=== PATIENT | male | born 1945 | race Caucasian/White ===

== ENCOUNTER 2017-06-30 19:07 | Inpatient (IN) | payer MEDICARE, OTHER ==
[~2017-06-30] VITALS: Ht 175.3 cm; Wt 73.5 kg
[~2017-06-30 19:07] MED LIST: CARB-19 PO; CNC30T PO; DOCU-159 PO; FOLI1TAB42 PO; LEVO50TA74 PO; METAM PO; METO100T PO; OMEP20CA16 PO; SEVE800T7 PO; SIMV40TA3 PO; TAMS-14 PO
--- NOTE | 2017-06-30 19:21 | ERD ---
ER Documentation Chief Complaint Chief Complaint HPI 71-year-old male was brought in by ambulance after he was at his dialysis center nearly completed with his dialysis when he suddenly felt very confused and lightheaded for a time. He denied any chest pain felt fine before that. According the paramedics to the facility took his blood pressure said was extremely low with a systolic of 60. Patient is feeling much better now. He denies any current symptoms. ROS All systems reviewed and are negative except as per history of present illness. Medications Home Meds Reported Medications Clopidogrel Bisulfate* (Clopidogrel Bisulfate*) 75 Mg Tablet, 75 MG PO DAILY, # 30 TAB 06/30/17 Atorvastatin* (Atorvastatin*) 80 Mg Tablet, 80 MG PO QHS, #30 TAB 06/30/17 Psyllium* (Metamucil*) 1 Pkt Susp, 1 PKT PO DAILY for CONSTIPATION, PACKET 09/30/14 Levothyroxine Sodium* (Levothyroxine Sodium*) 50 Mcg Tablet, 50 MCG PO DAILY, TAB 09/30/14 Docusate Sodium* (Docusate Sodium*) 100 Mg Capsule, 200 MG PO DAILY, CAP 09/30/14 Sevelamer Carbonate* (Renvela*) 800 Mg Tablet, 800 MG PO TID, TAB 09/30/14 Omeprazole* (Omeprazole*) 20 Mg Capsule.dr, 20 MG PO DAILY, CAP 09/30/14 Metoprolol (Lopressor) 100 Mg Tablet, 200 MG PO BID 08/17/12 Tamsulosin Hcl* (Flomax*) 0.4 Mg Cap.sr.24h, 0.4 MG PO HS 08/17/12 Folic Acid/Vitamin B Comp W-C (Dialyvite Tablet) 1 Tab Tablet, 1 TAB PO DAILY 08/17/12 Discontinued Reported Medications Simvastatin (Simvastatin) 40 Mg Tablet, 20 MG PO HS, TAB 09/30/14 Cinacalcet* (Sensipar*) 30 Mg Tab, 30 MG PO DAILY, TAB 09/30/14 Carbidopa/Levodopa (Carbidopa-Levo 25-100 Tab) 1 Tab Tablet, 1 TAB PO TID 08/17/12 Allergies Allergies: Coded Allergies: Penicillins (Verified Allergy, Unknown, 05/06/14) PMhx/Soc History of Surgery: No Anesthesia Reaction: No Hx Neurological Disorder: No Hx Respiratory Disorders: No Hx Cardiac Disorders: No Hx Psychiatric Problems: No Hx Miscellaneous Medical Probl: No Hx Alcohol Use: No Hx Substance Use: No Hx Tobacco Use: No Physical Exam Vitals Vital Signs Date Time Temp Pulse Resp B/P Pulse Ox O2 Delivery O2 Flow Rate FiO2 06/30/17 21:00 97.5 80 15 122/72 100 Nasal Cannula 2.0 06/30/17 20:09 97.5 80 20 150/77 100 Nasal Cannula 06/30/17 19:15 97.7 80 17 132/71 91 Room Air 06/30/17 19:13 97.7 89 17 132/71 99 Physical Exam Const: [] No distress Head: Atraumatic Eyes: Normal Conjunctiva, EOMI, PERRLA ENT: Normal External Ears, Nose and Mouth. Neck: Full range of motion..~ No meningismus. Resp: Clear to auscultation bilaterally Cardio: Regular rate and rhythm, no murmurs Abd: Soft, non tender, non distended. Normal bowel sounds Skin: No petechiae or rashes Back: No midline or flank tenderness Ext: No cyanosis, or edema, cyanosis axis of left upper extremity with palpable thrill, distal pulses intact all 4 extreme Neur: Awake and alert oriented 3, cranial nerves II through XII intact, no cerebellar deficits, normal gait. Psych: Normal Mood and Affect Result Diagram: 06/30/17193906/30/171939 Results 24 hrs Laboratory Tests Test 06/30/17 19:40 06/30/17 19:53 06/30/17 22:37 White Blood Count 5.610^3/ul Red Blood Count 3.3110^6/ul Hemoglobin 11.0g/dl Hematocrit 32.9% Mean Corpuscular Volume 99.4fl Mean Corpuscular Hemoglobin 33.2pg Mean Corpuscular Hemoglobin Concent 33.4g/dl Red Cell Distribution Width 13.8% Platelet Count 21140^3/UL Mean Platelet Volume 9.5fl Neutrophils % 77.4% Lymphocytes % 5.0% Monocytes % 14.6% Eosinophils % 2.3% Basophils % 0.2% Nucleated Red Blood Cells % 0.0/100WBC Neutrophils # 4.310^3/ul Lymphocytes # 0.310^3/ul Monocytes # 0.810^3/ul Eosinophils # 0.110^3/ul Basophils # 0.010^3/ul Nucleated Red Blood Cells # 0.010^3/ul Sodium Level 142mmol/L Potassium Level 4.1mmol/L Chloride Level 94mmol/L Carbon Dioxide Level 38mmol/L Anion Gap 14 Blood Urea Nitrogen 23mg/dl Creatinine 4.13mg/dl Glucose Level 91mg/dl Calcium Level 9.6mg/dl Total Bilirubin 0.1mg/dl Direct Bilirubin 0.00mg/dl Indirect Bilirubin 0.1mg/dl Aspartate Amino Transf (AST/SGOT) 21IU/L Alanine Aminotransferase (ALT/SGPT) 15IU/L Alkaline Phosphatase 139IU/L Troponin I 0.969ng/ml Pending Total Protein 6.6g/dl Albumin 3.9g/dl Globulin 2.70g/dl Albumin/Globulin Ratio 1.44 Lipase 405U/L Lactic Acid Level 1.2mmol/L Creatine Kinase 52IU/L Creatine Kinase Index Pending Creatinine Kinase MB (Mass) Pending Current Medications Medications (Trade) Dose Ordered Sig/Rob Route PRN Reason Start Time Stop Time Status Last Admin Dose Admin Aspirin (Aspirin) 324 mg ONCE ONCE PO 06/30/17 21:30 06/30/17 21:31 DC 06/30/17 21:41 Ondansetron HCl (Zofran Inj) 4 mg ER BRIDGE PRN IV NAUSEA AND/OR VOMITING 07/01/17 00:00 07/01/17 23:59 Acetaminophen (Tylenol Tab) 650 mg ER BRIDGE PRN PO MILD PAIN/FEVER 07/01/17 00:00 07/01/17 23:59 Procedures/MDM 71-year-old male with elevated troponin consistent with end STEMI. EKG is nonischemic. Is a renal failure but his troponin is significantly elevated. Had 3 hours and 15 minutes of dialysis completed. Does not have chest pain. However did a very concerning episode which could be explained by cardiac ischemia in which she had near syncope and confusion. Was given aspirin and heparinized in the emergency room. is admitting to telemetry for further monitoring of troponins cardiac monitoring and evaluation EKG interpretation: Normal sinus rhythm rate of 80, right axis deviation, no ST- T wave changes concerning for acute ischemia, normal intervals. Date monitor interpretation: Normal sinus rhythm without arrhythmia Chest x-ray interpretation: I see no acute process, I see no widened mediastinum , no palmar edema, pneumothorax, no fractures. Departure Diagnosis: Primary Impression: Non-STEMI (non-ST elevated myocardial infarction) Condition: Serious GISELLA CROWDER DO Jun 30, 2017 19:20
[2017-06-30 20:22] LABS: ABNORMAL IP MESSAGE 1; BASOPHILS % 0.2 % (0.0-2.0); EOSINOPHILS # 0.1 10^3/ul (0.0-0.5); EOSINOPHILS % 2.3 % (0.0-7.0); HEMATOCRIT 32.9 % (42.0-52.0); LYMPHOCYTES # 0.3 10^3/ul (0.8-2.9); MEAN CORPUSCULAR HEMOGLOBIN 33.2 pg (29.0-33.0); MEAN CORPUSCULAR HGB CONC 33.4 g/dl (32.0-37.0); MEAN CORPUSCULAR VOLUME 99.4 fl (82.0-101.0); MEAN PLATELET VOLUME 9.5 fl (7.4-10.4); MONOCYTE # 0.8 10^3/ul (0.3-0.9); MONOCYTES % 14.6 % (0.0-11.0); NEUTROPHIL # 4.3 10^3/ul (1.6-7.5); NEUTROPHILS % 77.4 % (39.0-77.0); PLATELET COUNT 184 10^3/UL (140-415); POSITIVE DIFF @See below; RED BLOOD COUNT 3.31 10^6/ul (4.70-6.10); RED CELL DISTRIBUTION WIDTH 13.8 % (11.5-14.5); WHITE BLOOD COUNT 5.6 10^3/ul (4.8-10.8)
[2017-06-30 20:35] LABS: ALBUMIN 3.9 g/dl (3.3-4.9); ALBUMIN/GLOBULIN RATIO 1.44; BILIRUBIN,INDIRECT 0.1 mg/dl (0-1.1); BILIRUBIN,TOTAL 0.1 mg/dl (0.2-1.3); CALCIUM 9.6 mg/dl (8.4-10.2); CREATININE 4.13 mg/dl (0.61-1.24); POTASSIUM 4.1 mmol/L (3.5-5.1); TOTAL PROTEIN 6.6 g/dl (6.1-8.1)
[2017-06-30 20:51] LABS: TROPONIN-I 0.969 ng/ml (0.00-0.12)
[2017-06-30] MEDS ORDERED: ASPIRIN 81 MG TAB PO ONE (21:30)
--- NOTE | 2017-06-30 21:55 | RADRPT ---
PROCEDURE: Chest xray. CLINICAL INDICATION: Abdominal pain TECHNIQUE: A portable upright AP view of the chest was obtained. COMPARISON: 09/30/2014. FINDINGS: There is stable mild enlargement of the cardiac silhouette. The lungs are well expanded and show nor mal vascularity. There is mild left basilar subsegmental atelectasis. There is blunting of the left lateral costophrenic sulcus, similar to 09/30/2014. The right lung is unremarkable. No pneumothorax is identified. The skeletal structures and soft tissues are unremarkable. IMPRESSION: Stable mild cardiomegaly. Mild left basilar subsegmental atelectasis. Chronic blunting of the left lateral costophrenic sulcus, similar to 09/30/2014, likely related to s carring. RPTAT:PP .Marielos Ramirez MD, Date Time Electronically viewed and signed by .Marielos Ramirez MD, on 06/30/2017 21:54 .K/
[2017-06-30] MEDS ORDERED: ATOR80TA75 PO (22:05)
[2017-06-30] MEDS ORDERED: CLOP75TA4 PO (22:05)
--- NOTE | 2017-06-30 22:12 | RADRPT ---
PROCEDURE: CT Brain without contrast. CLINICAL INDICATION: confusion, near-syncope TECHNIQUE: A CT of the brain was performed on a GE [employer] 64-slice CT scanner utilizing axial imaging from the skull base through the vertex without IV contrast. Multiplanar reformatted images were made. Images were reviewed on a PACS workstation. The CTDIvol is 45.0 mGy and the DLP is 720 mGycm. One or more of the following dose reduction techniques were utilized: 1.) Automated exposure control 2.) Adjustment of the mA +/- kV according to patient's size 3.) Use of iterative reconstruction technique. COMPARISON: None FINDINGS: The lateral ventricles and third ventricle are enlarged; this may be due to cerebral atrophy with a central predominance though normal pressure hydrocephalus should also be considered given that ventr icular enlargement is out of proportion to cortical sulcal enlargement. Furthermore, the sylvian fis sures are prominent. No intracranial mass is seen. There is no intracranial hemorrhage, mass effect, or midline shift. No extra-axial fluid collection is seen. Intracranial arterial calcifications present. The visualized paranasal sinuses and osseous structures are grossly unremarkable. IMPRESSION: Enlargement of the ventricular system, particularly the lateral ventricles and third ventricle. This finding may be related to cerebral atrophy with a central predominance though normal pressure hydro cephalus should also be considered in this clinical context particularly given that ventricular enla rgement is out of proportion to cortical sulcal enlargement. Consider neurologic consultation for fu rther evaluation. No intracranial mass, midline shift, nor bleed. Physician Galo Date Time Electronically viewed and signed by Physician Galo on 06/30/2017 22:11 ML/
[2017-06-30] MEDS ORDERED: HEPARIN 1000 UNITS/ML 10 ML INJ IV STA (23:40)
[2017-06-30] MEDS ORDERED: HEPARIN 25000 UNITS/250 ML 250 ML IV STA (23:40)
[2017-06-30 23:46] LABS: CK-MB 1.26 ng/ml (0.0-2.4); TROPONIN-I 0.845 ng/ml (0.00-0.12)
[2017-07-01] MEDS ORDERED: morphine 2 MG INJ IV PRN (02:30)
[2017-07-01] MEDS ORDERED: ACETAMINOPHEN 325 MG TAB PO PRN ×2 (02:30)
[2017-07-01] MEDS ORDERED: NITROGLYCERIN (SL) 0.4 MG TAB SL PRN (02:30)
[2017-07-01] MEDS ORDERED: ALBUTEROL/IPRATROPIUM (NEB) 3 ML AMP HHN PRN (02:30)
[2017-07-01] MEDS ORDERED: ONDANSETRON 4 MG INJ IV PRN ×2 (02:30)
[2017-07-01] MEDS ORDERED: NACL 0.9% 3 ML SYG IV SCH (02:30)
[2017-07-01 04:25] LABS: INR 1.04; PROTIME 13.6 Sec (12.2-14.2); PT RATIO 1.1
[2017-07-01 05:32] LABS: PARTIAL THROMBOPLASTIN TIME > 180.0 Sec (25.0-35.0)
[2017-07-01 05:35] LABS: ABNORMAL IP MESSAGE 1; BASOPHILS % 0.5 % (0.0-2.0); EOSINOPHILS # 0.2 10^3/ul (0.0-0.5); EOSINOPHILS % 4.1 % (0.0-7.0); HEMATOCRIT 29.7 % (42.0-52.0); LYMPHOCYTES # 0.4 10^3/ul (0.8-2.9); LYMPHOCYTES % 9.7 % (15.0-51.0); MEAN CORPUSCULAR HEMOGLOBIN 33.7 pg (29.0-33.0); MEAN CORPUSCULAR HGB CONC 33.7 g/dl (32.0-37.0); MEAN PLATELET VOLUME 9.4 fl (7.4-10.4); MONOCYTE # 0.6 10^3/ul (0.3-0.9); MONOCYTES % 14.2 % (0.0-11.0); NEUTROPHIL # 3.1 10^3/ul (1.6-7.5); NEUTROPHILS % 70.8 % (39.0-77.0); PLATELET COUNT 152 10^3/UL (140-415); POSITIVE DIFF @See below; RED BLOOD COUNT 2.97 10^6/ul (4.70-6.10); RED CELL DISTRIBUTION WIDTH 13.8 % (11.5-14.5); WHITE BLOOD COUNT 4.4 10^3/ul (4.8-10.8)
[2017-07-01 05:55] VITALS: TEMP 97.8
[2017-07-01 06:05] LABS: INR 1.03; PROTIME 13.5 Sec (12.2-14.2); PT RATIO 1.1
[2017-07-01 06:24] LABS: CK-MB 1.15 ng/ml (0.0-2.4); TROPONIN-I 0.831 ng/ml (0.00-0.12)
[2017-07-01 06:29] LABS: PARTIAL THROMBOPLASTIN TIME 147.9 Sec (25.0-35.0)
[2017-07-01 07:28] LABS: ALBUMIN 3.2 g/dl (3.3-4.9); ALBUMIN/GLOBULIN RATIO 1.18; BILIRUBIN,INDIRECT 0.2 mg/dl (0-1.1); BILIRUBIN,TOTAL 0.2 mg/dl (0.2-1.3); CALCIUM 9.6 mg/dl (8.4-10.2); CHOL/HDL RATIO 2.4 RATIO; CREATININE 5.22 mg/dl (0.61-1.24); MAGNESIUM 2.1 mg/dl (1.7-2.5); POTASSIUM 4.4 mmol/L (3.5-5.1); TOTAL PROTEIN 5.9 g/dl (6.1-8.1)
--- NOTE | 2017-07-01 07:46 | HP ---
Date/Time of Note Date/Time of Note DATE: 07/01/17 TIME: 07:33 Assessment/Plan Assessment/Plan Assessment/Plan 1. Near syncope -Patient had lightheadedness, altered mentation, left upper and lower extremity numbness as well as possible near fainting episode. This happened during dialysis. -Plan is for the telemetry monitoring -Check orthostatics -Patient reported recent cardiac catheterization with "balloon" a week and half ago at [facility]. Will obtain records -will trend troponin. Initial troponin of 0.969 is trending and I believe is probably related to his recent CAD -2D echo and carotid Doppler ultrasound -Cardiology consult 2. History of CAD, with multiple stents -See #1 3. Left upper and lower extremity numbness -Patient does have a history of Parkinson's disease and reported intermittent left-sided tremors -Head CT showed -Will place a neurology consult -Will obtain MRI of the brain. 4. ESRD on HD -Nephrology consult 5. Mild pancreatitis -Patient not complaining of abdominal pain but the lipase is 405 6. History of A. fib -Continue outpatient meds 7. History of BPH Continue home medications HPI/ROS Admit Date/Time Admit Date/Time Hx of Present Illness This is a 71-year-old male with a history of CAD, status post PCI with stent 4 , ESRD on HD, atrial fibrillation, Parkinson's disease, BPH, dyslipidemia. Patient was sent from dialysis center for a lightheadedness, confusion and left sided numbness. Symptoms started 45 minutes before completion of his dialysis. There was no reported hypotension. No loss of consciousness. Patient denied chest pain, shortness of breath. He said a week and half ago, he was admitted for chest pain at [facility]. At that time, he said that he had cardiac catheterization with "balloon". He also complains of left-sided upper and lower extremity numbness. He has a history of Parkinson's disease and he said sometimes he has tremors on the left side of his upper and lower extremities. When he presented to the ER, vitals were stable. Labs shows a creatinine of 4.13, BUN 23, hemoglobin 11 and a bicarb 38. Initial troponin was 0.969 with a second troponin of 0.845. EKG no ST elevation or depression. Chest x-ray showed mild basilar subsegmental atelectasis and Chronic blunting of the left lateral costophrenic sulcus, similar to 09/30/2014, likely related to scarring. PMH/Family/Social Social History Smoking Status: Never smoker Exam/Review of Systems Vital Signs Vitals Vital Signs Date Time Temp Pulse Resp B/P Pulse Ox O2 Delivery O2 Flow Rate FiO2 07/01/17 07:26 76 20 130/79 98 Nasal Cannula 2.0 07/01/17 05:55 97.8 Labs Result Diagram: 07/01/17 0529 06/30/170 Medications Medications Current Medications Ondansetron HCl (Zofran Inj) 4 mg Q6H PRN IV NAUSEA AND/OR VOMITING; Start at 02:30 Nitroglycerin (Nitroglycerin (Sl Tab) 0.4 Mg) 1 tab Q5M PRN SL CHEST PAIN; Start 07/01/17 at 02:30 Acetaminophen (Tylenol Tab) 650 mg Q6H PRN PO PAIN LEVEL 1-3 OR FEVER; Start 07/01/17 at 02:30 Morphine Sulfate (morphine) 2 mg Q4H PRN IV PAIN LEVEL 7-10; Start 07/01/17 at 02:30 Atorvastatin Calcium (Lipitor) 80 mg QHS PO ; Start 07/01/17 at 21:00 Clopidogrel Bisulfate (plaVIX) 75 mg DAILY PO ; Start 07/01/17 at 09:00 Docusate Sodium (Colace) 200 mg DAILY PO ; Start 07/01/17 at 09:00 Metoprolol Tartrate (Lopressor) 200 mg BID PO ; Start 07/01/17 at 09:00 Psyllium Hydrophilic Mucilloid (Metamucil) 1 pkt DAILY PO ; Start 07/01/17 at 09:00 Tamsulosin HCl (Flomax) 0.4 mg HS PO ; Start 07/01/17 at 21:00 Pantoprazole (Protonix Tab) 40 mg DAILY@06 PO ; Start 07/01/17 at 06:00 ROLY MORTENSEN MD Jul 01, 2017 07:46
[2017-07-01] MEDS: LEVOTHYROXINE 50 MCG TAB PO SCH (08:00)
[2017-07-01] MEDS: PANTOPRAZOLE (EC) 40 MG TAB PO SCH (08:00)
[2017-07-01 08:07] LABS: INR 0.98; PARTIAL THROMBOPLASTIN TIME 38.2 Sec (25.0-35.0)
--- NOTE | 2017-07-01 09:01 | RADRPT ---
PROCEDURE: US Carotids. CLINICAL INDICATION: bruit , ams TECHNIQUE: Multiple sonographic of the carotid bifurcation region and vertebral arteries were obta ined utilizing herndon scale, duplex and color-flow imaging. The images were reviewed on a PACS worksta tion. COMPARISON: No prior studies are available for comparison. FINDINGS: Evaluation of the right carotid bifurcation region reveals mild calcific atherosclerotic disease. Evaluation of the left carotid bifurcation region reveals mild to moderate calcific atherosclerotic disease. There is antegrade flow within the vertebral arteries bilaterally. RIGHT CAROTID MEASUREMENTS: Common Carotid Duonhx01.5 (cm/sec) Internal Carotid Artery - ydujsjfo14.3 (cm/sec) Internal Carotid Artery - mid65.1 (cm/sec) Internal Carotid Artery - .2 (cm/sec) Internal Carotid/Common Carotid0.98 LEFT CAROTID MEASUREMENTS: Common Carotid Bsdjpk65.7 (cm/sec) Internal Carotid Artery - .7 (cm/sec) Internal Carotid Artery - mid53.7 (cm/sec) Internal Carotid Artery - izopzp38.3 (cm/sec) Internal Carotid/Common Carotid1.11 RPTAT: AA IMPRESSION: No evidence for hemodynamically significant stenosis in the bilateral internal carotid arteries - va lidated velocity measurements with angiographic measurements, velocity criteria are extrapolated fro m diameter data as defined by the Society of Radiologists in Ultrasound Consensus Conference Radiolo gy 2003; 229;340-346. This study does indirectly reference the measurement of the distal ICA diamet er as the denominator for stenosis measurement. Normal antegrade flow in the vertebral arteries bilaterally. .Leif Philip MD, Date Time Electronically viewed and signed by .Leif Philip MD, MD on 07/01/2017 09:01 .S/
[2017-07-01] MEDS: SEVELAMER CARBONATE 0.8 GM PKT PO SCH ×3 (10:00→19:13)
[2017-07-01] MEDS: PSYLLIUM 28% PACKET PO SCH (10:00)
[2017-07-01] MEDS: DOCUSATE SODIUM 100 MG CAP PO SCH (10:30)
[2017-07-01] MEDS: METOPROLOL 100 MG TAB PO SCH ×2 (10:30→22:42)
[2017-07-01 10:42] LABS: CK-MB 1.14 ng/ml (0.0-2.4); TROPONIN-I 0.858 ng/ml (0.00-0.12)
[2017-07-01] MEDS: CLOPIDOGREL 75 MG TAB PO SCH (11:00)
[2017-07-01 11:07] LABS: INR 0.98
[2017-07-01 11:08] LABS: PARTIAL THROMBOPLASTIN TIME 33.2 Sec (25.0-35.0)
[2017-07-01 13:04] LABS: PROTIME 14.2 Sec (12.2-14.2); PT RATIO 1.1
[2017-07-01 13:41] LABS: PARTIAL THROMBOPLASTIN TIME > 180.0 Sec (25.0-35.0)
[2017-07-01] MEDS ORDERED: SIN50200 PO (14:01)
[2017-07-01 15:02] LABS: INR 1.01; PROTIME 13.3 Sec (12.2-14.2)
[2017-07-01 15:13] LABS: PARTIAL THROMBOPLASTIN TIME 130.6 Sec (25.0-35.0)
[2017-07-01 15:44] VITALS: BP 112/80; PULSE 66; RESP 66
[2017-07-01 16:13] VITALS: PULSE 75
[2017-07-01 17:34] VITALS: Ht 175.3 cm; Wt 73.5 kg
[2017-07-01 17:38] LABS: INR 1.05; PROTIME 13.7 Sec (12.2-14.2); PT RATIO 1.1
[2017-07-01 17:40] LABS: PARTIAL THROMBOPLASTIN TIME 56.4 Sec (25.0-35.0)
[2017-07-01 19:58] LABS: PROTIME 13.2 Sec (12.2-14.2)
[2017-07-01 19:59] LABS: PARTIAL THROMBOPLASTIN TIME 54.1 Sec (25.0-35.0)
[2017-07-01 20:05] VITALS: PULSE 75
[2017-07-01] MEDS: ATORVASTATIN 80 MG TAB PO SCH (20:37)
[2017-07-01] MEDS: CARBIDOPA/LEVODOPA 50-200 (CR) TAB PO SCH (20:37)
[2017-07-01] MEDS: TAMSULOSIN (SR) 0.4 MG CAP PO SCH (20:37)
[2017-07-01 20:39] VITALS: BP 137/66; RESP 19
[2017-07-01 21:31] LABS: INR 0.97; PROTIME 12.9 Sec (12.2-14.2)
[2017-07-01 21:32] LABS: PARTIAL THROMBOPLASTIN TIME 42.2 Sec (25.0-35.0)
[2017-07-01] MEDS ORDERED: ACETYLCYSTEINE 20% 4 ML VIAL NEB PRN (23:30)
[2017-07-01] MEDS ORDERED: PSYLLIUM 28% PACKET PO ONE (23:30)
[2017-07-01] MEDS: DIPHENHYDRAMINE 25 MG CAP PO PRN (23:44)
[2017-07-02] VITALS (12 sets, daily range): BP systolic 115–153; BP diastolic 55–81; PULSE 63–75; RESP 18–20
[2017-07-02] MEDS ORDERED: ALBUTEROL/IPRATROPIUM (NEB) 3 ML AMP HHN PRN (01:00)
[2017-07-02] MEDS: LEVOTHYROXINE 50 MCG TAB PO SCH (06:35)
[2017-07-02] MEDS: PANTOPRAZOLE (EC) 40 MG TAB PO SCH (06:35)
[2017-07-02 06:47] LABS: ABNORMAL IP MESSAGE 1; BASOPHILS % 0.4 % (0.0-2.0); EOSINOPHILS # 0.2 10^3/ul (0.0-0.5); EOSINOPHILS % 3.7 % (0.0-7.0); HEMOGLOBIN 10.5 g/dl (14.0-18.0); LYMPHOCYTES # 0.3 10^3/ul (0.8-2.9); LYMPHOCYTES % 5.1 % (15.0-51.0); MEAN CORPUSCULAR HEMOGLOBIN 33.1 pg (29.0-33.0); MEAN CORPUSCULAR HGB CONC 32.8 g/dl (32.0-37.0); MEAN CORPUSCULAR VOLUME 100.9 fl (82.0-101.0); MEAN PLATELET VOLUME 9.8 fl (7.4-10.4); MONOCYTE # 0.6 10^3/ul (0.3-0.9); MONOCYTES % 12.3 % (0.0-11.0); NEUTROPHIL # 3.8 10^3/ul (1.6-7.5); NEUTROPHILS % 77.9 % (39.0-77.0); PLATELET COUNT 138 10^3/UL (140-415); POSITIVE DIFF @See below; RED BLOOD COUNT 3.17 10^6/ul (4.70-6.10); RED CELL DISTRIBUTION WIDTH 13.6 % (11.5-14.5); WHITE BLOOD COUNT 4.9 10^3/ul (4.8-10.8)
[2017-07-02 07:18] LABS: CREATININE 7.7 mg/dl (0.61-1.24); MAGNESIUM 2.3 mg/dl (1.7-2.5); PHOSPHORUS 5.8 mg/dl (2.5-4.9); POTASSIUM 5.1 mmol/L (3.5-5.1)
[2017-07-02] MEDS: DOCUSATE SODIUM 100 MG CAP PO SCH (08:17)
[2017-07-02] MEDS: CLOPIDOGREL 75 MG TAB PO SCH (08:18)
[2017-07-02] MEDS: CARBIDOPA/LEVODOPA 50-200 (CR) TAB PO SCH ×4 (08:19→21:01)
[2017-07-02] MEDS: SEVELAMER CARBONATE 0.8 GM PKT PO SCH ×3 (08:19→16:58)
[2017-07-02] MEDS: METOPROLOL 100 MG TAB PO SCH ×2 (08:27→21:02)
[2017-07-02] MEDS: PSYLLIUM 28% PACKET PO SCH (10:13)
[2017-07-02] MEDS: ASPIRIN (EC) 81 MG TAB PO SCH (16:58)
--- NOTE | 2017-07-02 17:44 | PN ---
Date/Time of Note Date/Time of Note DATE: 07/02/17 TIME: 17:38 Assessment/Plan VTE Prophylaxis VTE Prophylaxis Intervention: LMWH Lines/Catheters IV Catheter Type (from Nrsg): Peripheral IV Assessment/Plan Chief Complaint/Hosp Course Subjective: Admitted with diaphoresis and left leg and potentially harm weakness while at dialysis. Denies any loss of speech vision headache fever. Occasionally has trouble swallowing his pills. Had a similar event last week at an outside hospital [facility]; I do not believe he had an MRI. Recently admitted for heart disease at [facility]. Denies any new stents. Adherent to Plavix. Denies any incontinence tongue bite loss of vision. He has chronic parkinsonism is mostly on the left. Follows commands oriented at present. Objective: Vital signs stable. Exam No pallor droop adenopathy JVD Regular no murmur rub gallop Clear bilaterally Bowel sounds present nontender nausea no RG Obesity Edema Neuro: Cranial nerves II to XII grossly intact Motor: 5*5 on Rt. 4-5 * 5 lt. Sensory: Symmetrical Babinski's: None Cerebellar function tests: F-N essentially grossly intact; no dysdiadochokinesis. These tests are a little more easier on the right. Assessment and plan 1. Left-sided paresthesias. TIA? Rule out stroke. Consider arthritic disease or progressive parkinsonism. MRI pending 2. Chronic coronary disease. Continue Plavix risk factor modification 3. ESRD. Needs dialysis [facility] 4. Chronic A. fib? chadsvas2 =1 6. Chronic BPH 7. Chronic parkinsonism; PT consult/dme 8. Chronic BPH 9. Chronic dyslipidemia 10.Chronic anemia 10. Constipation. Problems: Exam/Review of Systems Vital Signs Vitals Vital Signs Date Time Temp Pulse Resp B/P Pulse Ox O2 Delivery O2 Flow Rate FiO2 07/02/17 16:02 67 07/02/17 15:31 97.5 18 115/55 92 07/01/17 15:44 Room Air 07/01/17 14:30 2.0 Results Result Diagram: 07/02/17 0610 07/02/17 0610 Results 24 hrs Laboratory Tests Test 07/01/17 18:54 07/01/17 20:55 07/02/17 06:10 Prothrombin Time 13.2 12.9 Prothrombin Time Ratio 1.0 1.0 INR International Normalized Ratio 1.00 0.97 Activated Partial Thromboplast Time 54.1 H 42.2 H White Blood Count 4.9 Red Blood Count 3.17 L Hemoglobin 10.5 L Hematocrit 32.0 L Mean Corpuscular Volume 100.9 Mean Corpuscular Hemoglobin 33.1 H Mean Corpuscular Hemoglobin Concent 32.8 Red Cell Distribution Width 13.6 Platelet Count 138 L Mean Platelet Volume 9.8 Neutrophils % 77.9 H Lymphocytes % 5.1 L Monocytes % 12.3 H Eosinophils % 3.7 Basophils % 0.4 Nucleated Red Blood Cells % 0.0 Neutrophils # 3.8 Lymphocytes # 0.3 L Monocytes # 0.6 Eosinophils # 0.2 Basophils # 0.0 Nucleated Red Blood Cells # 0.0 Sodium Level 142 Potassium Level 5.1 Chloride Level 99 Carbon Dioxide Level 33 H Anion Gap 15 Blood Urea Nitrogen 52 H Creatinine 7.70 #H Glucose Level 80 Calcium Level 10.0 Phosphorus Level 5.8 H Magnesium Level 2.3 Medications Medications Current Medications Ondansetron HCl (Zofran Inj) 4 mg Q6H PRN IV NAUSEA AND/OR VOMITING; Start at 02:30 Nitroglycerin (Nitroglycerin (Sl Tab) 0.4 Mg) 1 tab Q5M PRN SL CHEST PAIN; Start 07/01/17 at 02:30 Acetaminophen (Tylenol Tab) 650 mg Q6H PRN PO PAIN LEVEL 1-3 OR FEVER; Start 07/01/17 at 02:30 Morphine Sulfate (morphine) 2 mg Q4H PRN IV PAIN LEVEL 7-10; Start 07/01/17 at 02:30 Atorvastatin Calcium (Lipitor) 80 mg QHS PO Last administered on 07/01/17 20: 37; Admin Dose 80 MG; Start 07/01/17 at 21:00 Clopidogrel Bisulfate (plaVIX) 75 mg DAILY PO Last administered on 07/02/17 08:18; Admin Dose 75 MG; Start 07/01/17 at 09:00 Docusate Sodium (Colace) 200 mg DAILY PO Last administered on 07/02/17 08:17 ; Admin Dose 200 MG; Start 07/01/17 at 09:00 Psyllium Hydrophilic Mucilloid (Metamucil) 1 pkt DAILY PO Last administered on 07/02/17 10:13; Admin Dose 1 PKT; Start 07/01/17 at 09:00 Tamsulosin HCl (Flomax) 0.4 mg HS PO Last administered on 07/01/17 20:37; Admin Dose 0.4 MG; Start 07/01/17 at 21:00 Pantoprazole (Protonix Tab) 40 mg DAILY@06 PO Last administered on 07/02/17 06:35; Admin Dose 40 MG; Start 07/01/17 at 06:00 Diphenhydramine HCl (Benadryl) 25 mg Q6 PRN PO ITCHING Last administered on 23:44; Admin Dose 25 MG; Start 07/01/17 at 14:30 Carbidopa/Levodopa (Sinemet Cr (50/ 200)) 2 tab QID PO Last administered on 16:58; Admin Dose 2 TAB; Start 07/01/17 at 21:00 Metoprolol Tartrate (Lopressor) 100 mg BID PO ; Start 07/02/17 at 09:00 Aspirin (Halfprin) 81 mg DAILY PO Last administered on 07/02/17 16:58; Admin Dose 81 MG; Start 07/02/17 at 16:30 DHRUV UMANA MD Jul 02, 2017 17:44
[2017-07-02] MEDS ORDERED: BISACODYL (EC) 5 MG TAB PO ONE (18:00)
--- NOTE | 2017-07-02 18:20 | RADRPT ---
Echocardiogram Report Patient Name: JOAN HOOPER Gender: Male Date: 1945 Study Date: 01-Jul-2017 Product Marketing Engineer: Trenton Prado [facility] Location: [facility] Ref. Physician: ROLY MORTENSEN Quality: Adequate Procedures: Transthoracic echocardiogram with complete 2D, M-Mode, and doppler examination. Indications: Coronary Artery Disease. 2D/M Mode Doppler Measurement Value Normal Ranges Measurement Value Normal Ranges LVIDd 2D 4.2 3.5 - 5.6 cm ALCIDES Vmax 1.6 cm2 LVIDs 2D 2.9 2.1 - 4.1 cm ALCIDES VTI 1.8 cm2 FS 2D 31.8 % AV Mean Lamberto 1.3 m/sec LVPWd 2D 1.3 0.6 - 1.1 cm AV Mean PG 8.0 mmHg IVSd 2D 1.7 0.6 - 1.1 cm AV Peak Lamberto 2.1 m/sec IVS/LVPW 2D 1.3 AV Peak PG 17.0 mmHg AoR Diam 2D 2.8 2.0 - 3.7 cm AV VTI 42.2 cm LA/Ao 2D 2 0 - 1 AI Peak PG 43.0 mmHg EDV 2D 74.6 cm3 AI Peak Lamberto 3.3 m/sec ESV 2D 23.6 cm3 AI PHT 623.0 msec LA Dimen 2D 4.2 2.3 - 4.0 cm LVOT Mean Lamberto 0.7 m/sec LVOT Diam 2.1 cm LVOT Mean PG 2.0 mmHg LVOT Area 3.5 cm2 LVOT Peak Lamberto 1.0 m/sec LVOT Peak PG 4.0 mmHg LVOT VTI 22.4 cm MV E Peak Lamberto 0.7 m/sec MV A Peak Lamberto 0.9 m/sec MV E/A 0.8 MV Decel Time 183 msec MV E/A 0.8 TR Peak Lamberto 2.0 m/sec TR Peak PG 16.0 mmHg RVSP 24.0 mmHg Findings Left Ventricle: Normal left ventricular systolic function. Normal left ventricular cavity size. Sigmoid septum. Ejection fraction is visually estimated at 5560 %. Abnormal Diastolic Function. Right Ventricle: Normal right ventricular size. Normal right ventricular systolic function. Left Atrium: There is mild enlargement of left atrium. Right Atrium: The right atrium is normal in size. Mitral Valve: Mild mitral leaflet calcification. Mild mitral annular calcification. Trace mitral regurgitation. Aortic Valve: No significant aortic stenosis. Aortic sclerosis without stenosis. Mild aortic valve regurgitation. Tricuspid Valve: Normal appearance of the tricuspid valve. Estimated peak PA systolic pressure 24 mmHg. There is trace tricuspid regurgitation. Pulmonic Valve: Pulmonic valve not well visualized. There is trace pulmonic regurgitation. Pericardium: Normal pericardium with no significant pericardial effusion. Aorta: Normal aortic root. IVC: Dilated IVC with respiratory collapse consistent with elevated right atrial pressure. Conclusions 1.Normal left ventricular systolic function. Normal left ventricular cavity size. Sigmoid septum. Ejection fraction is visually estimated at 55-60 %. Abnormal Diastolic Function. 2.There is mild enlargement of left atrium. 3.Mild mitral leaflet calcification. Mild mitral annular calcification. Trace mitral regurgitation. 4.No significant aortic stenosis. Aortic sclerosis without stenosis. Mild aortic valve regurgitation. 5.Normal appearance of the tricuspid valve. Estimated peak PA systolic pressure 24 mmHg. There is trace tricuspid regurgitation. 6.Pulmonic valve not well visualized. There is trace pulmonic regurgitation. Electronically Signed By: Franko Miranda 02-Jul-2017 18:20:11 -0800 Patient Name: JOAN HOOPER Study Date: 01-Jul-2017 [id number]
--- NOTE | 2017-07-02 20:16 | CONS ---
DATE OF ADMISSION: 07/01/2017 DATE OF CONSULTATION: NEPHROLOGY CONSULTATION Thank you, Dr. Samson, for asking me to participate in the medical management of this patient. REASON FOR CONSULTATION: End-stage renal disease on hemodialysis. HISTORY OF PRESENT ILLNESS: This 71-year-old man was admitted here yesterday after having chest sanam n and diaphoresis while having his hemodialysis treatment. The patient says that he was in his [facility] state of health until 06/19/2017, when while walking in a store, he developed substernal chest sanam n with diaphoresis. He went to [facility] and underwent a coronary angiogram, and was found to have diffuse coronary artery disease with a thrombosed stent in the mid and distal RCA . The patient underwent a balloon angioplasty. The patient has a history of coronary artery diseas e and has 4 stents in his coronary arteries from about 9 or 10 years ago. The patient has a history of end-stage renal disease and is on maintenance hemodialysis at the [facility] s unit. He does not remember the names of his nephrologists. The patient does have some memory def icits as I am asking him questions about his history. The patient was actually admitted to the hosp ital 2 days ago. His chest pain occurred while he was having his routine hemodialysis treatment aft er about 3 hours and 15 minutes of a 4-hour dialysis session. The patient is now awake and alert. He denies any chest pain or shortness of breath. He says he just feels tired. The patient has a hi story of end-stage renal disease due to hypertension. He has been on hemodialysis for 7 years. PAST MEDICAL HISTORY: 1. Remarkable for coronary artery disease. 2. End-stage renal disease. 3. Parkinson's disease. 4. Hypertension. CURRENT MEDICATIONS: 1. Aspirin 81 mg a day. 2. Lipitor 80 mg a day. 3. Sinemet 25/100 two tablets by mouth 4 times a day. 4. Coreg 25 mg twice a day. 5. Plavix 75 mg a day. 6. Colace 100 mg twice a day. PAST SURGICAL HISTORY: Left upper arm AV fistula, cataract surgery, left knee replacement. ALLERGIES: PENICILLIN. SOCIAL HISTORY: The patient used to smoke, but not now. He gets his medical care at the [facility]. PHYSICAL EXAMINATION: GENERAL: At this time, reveals a well-developed man in no apparent distress. VITAL SIGNS: Temperature 97.5, pulse is 71, respirations 18, blood pressure 115/55, O2 saturation o f 92% on room air. HEENT: Head normocephalic. Eyes: Extraocular muscles intact. Nose and mouth: Normal. NECK: Supple. No neck vein distention. LUNGS: Clear to auscultation. HEART: Regular rhythm. No murmurs, gallops or rub. There is a transmitted bruit heard in the left upper chest from the left upper arm AV fistula. ABDOMEN: Soft, nontender, no masses or megaly. EXTREMITIES: No peripheral edema. IMPRESSION: 1. End-stage renal disease due to hypertension, now on maintenance hemodialysis. 2. Acute coronary syndrome. The patient did have an ST elevation myocardial infarction about 12 da ys ago. He was admitted on 06/19/2017 to [facility] and underwent a coronary eladio ogram. At that time, he was found to have a thrombosed stent in his right coronary artery. An atte mpt was made to balloon angioplasty the stent open. 3. Hypertension. 4. Hyperlipidemia. PLAN: 1. We will order hemodialysis treatment for tomorrow. 2. Resume routine medications. 3. We will follow patient along with you. Dictated By: ZEESHAN KENYON MD, ND/KIRAN Conf#: [id number] DID#: [id number] CC: ROLY SAMSON MD;*EndCC*
[2017-07-02] MEDS: SENNA/DOCUSATE NA (8.6MG/50MG) TAB PO SCH (21:00)
[2017-07-02] MEDS: ATORVASTATIN 80 MG TAB PO SCH (21:00)
[2017-07-02] MEDS: TAMSULOSIN (SR) 0.4 MG CAP PO SCH (21:00)
[2017-07-02] MEDS ORDERED: LORAZEPAM 2 MG INJ IV ONE ×2 (21:30)
[2017-07-02] MEDS: DIPHENHYDRAMINE 25 MG CAP PO PRN (21:41)
[2017-07-03] VITALS (20 sets, daily range): BP systolic 104–142; BP diastolic 57–84; PULSE 66–76; RESP 18–20
--- NOTE | 2017-07-03 03:14 | RADRPT ---
PROCEDURE: MR Brain without intravenous contrast CLINICAL INDICATION: Left-sided weakness. COMPARISON: CT brain 06/30/2017. TECHNIQUE: Multiplanar multi-sequence images of the brain were obtained. FINDINGS: Parenchyma: No acute hemorrhage, infarction, or mass. There is moderate generalized parenchymal volu me loss. Gradient echo images demonstrate hypointense signal within the deep white matter lateral to the right occipital horn on gradient echo image 13 consistent with a remote small hemorrhage. Mild scattered hyperintense foci are present on FLAIR and T2-weighted images within the subcortical and d eep white matter favored to represent microvascular white matter ischemic disease. Hyperintense sign al on FLAIR images within the periventricular white matter with diagnostic considerations including transependymal edema and leukoariosis. Ventricles: The lateral, third, and fourth ventricles are enlarged relative to the sulcal size. Diag nostic considerations include enlargement secondary to atrophy and/or concurrent extraventricular ob structive hydrocephalus(NPH). Extra-axial spaces: No herniation or midline shift. Orbits: Normal. Major intracranial flow voids: Preserved. Paranasal sinuses: Mild mucosal thickening of the left maxillary sinus periphery. Minimal involvemen t of the bilateral ethmoid sinus is noted. Mastoids and middle ears: Clear. Bones: Normal. Extracranial soft tissues: Normal. Additional comment: None. IMPRESSION: 1. No acute CVA. 2. Enlarged lateral, third, fourth ventricles relative to the sulcal size. This enlarges may be sec ondary to moderate generalized parenchymal volume loss and or extra ventricular obstructive hydrocep halus (NPH). 3. Moderate generalized parenchymal volume loss. 4. Periventricular hyperintense signal on FLAIR images with considerations including leukoariosis a nd transependymal edema. 5. Mild microvascular white matter ischemic disease. 6. Remote small hemorrhage within the deep white matter lateral to the right occipital horn. 7. Mild paranasal sinus disease. RPTAT: HRSR Physician Yanci Date Time Electronically viewed and signed by Physician Yanci on 07/03/2017 03:13 RR/
[2017-07-03] MEDS: PANTOPRAZOLE (EC) 40 MG TAB PO SCH (06:01)
[2017-07-03 08:21] LABS: ABNORMAL IP MESSAGE 1; BASOPHILS % 0.4 % (0.0-2.0); EOSINOPHILS # 0.3 10^3/ul (0.0-0.5); EOSINOPHILS % 4.5 % (0.0-7.0); HEMATOCRIT 30.7 % (42.0-52.0); HEMOGLOBIN 10.3 g/dl (14.0-18.0); LYMPHOCYTES # 0.3 10^3/ul (0.8-2.9); MEAN CORPUSCULAR HEMOGLOBIN 33.1 pg (29.0-33.0); MEAN CORPUSCULAR HGB CONC 33.6 g/dl (32.0-37.0); MEAN CORPUSCULAR VOLUME 98.7 fl (82.0-101.0); MEAN PLATELET VOLUME 9.9 fl (7.4-10.4); MONOCYTE # 0.6 10^3/ul (0.3-0.9); MONOCYTES % 10.6 % (0.0-11.0); NEUTROPHIL # 4.3 10^3/ul (1.6-7.5); NEUTROPHILS % 78.3 % (39.0-77.0); PLATELET COUNT 156 10^3/UL (140-415); POSITIVE DIFF @See below; RED BLOOD COUNT 3.11 10^6/ul (4.70-6.10); RED CELL DISTRIBUTION WIDTH 13.6 % (11.5-14.5); WHITE BLOOD COUNT 5.5 10^3/ul (4.8-10.8)
[2017-07-03 08:47] LABS: ALBUMIN 3.7 g/dl (3.3-4.9); ALBUMIN/GLOBULIN RATIO 1.37; BILIRUBIN,INDIRECT 0.3 mg/dl (0-1.1); BILIRUBIN,TOTAL 0.3 mg/dl (0.2-1.3); CALCIUM 10.3 mg/dl (8.4-10.2); CREATININE 9.08 mg/dl (0.61-1.24); MAGNESIUM 2.2 mg/dl (1.7-2.5); PHOSPHORUS 5.3 mg/dl (2.5-4.9); POTASSIUM 4.8 mmol/L (3.5-5.1); TOTAL PROTEIN 6.4 g/dl (6.1-8.1)
[2017-07-03] MEDS: LEVOTHYROXINE 50 MCG TAB PO SCH (08:47)
[2017-07-03] MEDS: SEVELAMER CARBONATE 0.8 GM PKT PO SCH ×3 (08:48→15:58)
[2017-07-03] MEDS: DOCUSATE SODIUM 100 MG CAP PO SCH (08:50)
[2017-07-03] MEDS: ASPIRIN (EC) 81 MG TAB PO SCH (08:51)
[2017-07-03] MEDS: METOPROLOL 100 MG TAB PO SCH ×2 (08:51→21:38)
[2017-07-03] MEDS: CARBIDOPA/LEVODOPA 50-200 (CR) TAB PO SCH ×4 (08:51→21:38)
[2017-07-03] MEDS: CLOPIDOGREL 75 MG TAB PO SCH (08:52)
[2017-07-03] MEDS: PSYLLIUM 28% PACKET PO SCH (08:52)
[2017-07-03 09:15] LABS: THYROID STIMULATING HORMONE 7.05 MIU/L (0.465-4.680)
--- NOTE | 2017-07-03 13:58 | CONS ---
Date/Time of Note Date/Time of Note DATE: 07/03/17 TIME: 13:54 Assessment/Plan Assessment/Plan Additional Assessment/Plan 1. End-stage renal disease due to hypertension, now on maintenance hemodialysis.usual hd m// but missed hd yesterday. will arrange for hd again in am if still here otherwise will resume his usual hd in the unit tomorrow 2. Acute coronary syndrome. The patient did have an ST elevation myocardial infarction about 12 days ago. He was admitted on 06/19/2017 to [facility] and underwent a coronary angiogram. At that time, he was found to have a thrombosed stent in his right coronary artery. An attempt was made to balloon angioplasty the stent open. fu per cards 3. Hypertension: on meds and stable 4. Hyperlipidemia: on statin 5- anemia in esrd: epogen prn to keep hb> 10 Consultation Date/Type/Reason Admit Date/Time Jul 01, 2017 at 16:08 Initial Consult Date 24 HR Interval Summary Free Text/Dictation complains of weakness. no cp or sob . completed hd this am uneventfully Exam/Review of Systems Vital Signs Vitals Vital Signs Date Time Temp Pulse Resp B/P Pulse Ox O2 Delivery O2 Flow Rate FiO2 07/03/17 13:02 98.1 74 20 104/61 99 Room Air 07/01/17 14:30 2.0 Intake and Output 07/02/17 07/02/17 07/03/17 15:00 23:00 07:00 Intake Total 400 ml 1080 ml Output Total 650 ml Balance 400 ml 430 ml Exam Constitutional: alert, oriented, well developed Psych: no complaints Head: normocephalic Eyes: nl conjunctiva Neck: non-tender, supple Respiratory: clear to auscultation, diminished breath sounds Cardiovascular: edema, nl pulses, regular rate and rhythm Gastrointestinal: non-tender, soft Results Result Diagram: 07/03/17 0730 07/03/17 0730 Results 24 hrs Laboratory Tests Test 07/03/17 07:30 White Blood Count 5.5 Red Blood Count 3.11 L Hemoglobin 10.3 L Hematocrit 30.7 L Mean Corpuscular Volume 98.7 Mean Corpuscular Hemoglobin 33.1 H Mean Corpuscular Hemoglobin Concent 33.6 Red Cell Distribution Width 13.6 Platelet Count 156 Mean Platelet Volume 9.9 Neutrophils % 78.3 H Lymphocytes % 6.0 L Monocytes % 10.6 Eosinophils % 4.5 Basophils % 0.4 Nucleated Red Blood Cells % 0.0 Neutrophils # 4.3 Lymphocytes # 0.3 L Monocytes # 0.6 Eosinophils # 0.3 Basophils # 0.0 Nucleated Red Blood Cells # 0.0 Sodium Level 139 Potassium Level 4.8 Chloride Level 94 L Carbon Dioxide Level 30 Anion Gap 20 H Blood Urea Nitrogen 64 H Creatinine 9.08 H Glucose Level 77 Calcium Level 10.3 H Phosphorus Level 5.3 H Magnesium Level 2.2 Total Bilirubin 0.3 Direct Bilirubin 0.00 Indirect Bilirubin 0.3 Aspartate Amino Transf (AST/SGOT) 24 Alanine Aminotransferase (ALT/SGPT) 19 Alkaline Phosphatase 80 Total Protein 6.4 Albumin 3.7 Globulin 2.70 Albumin/Globulin Ratio 1.37 Lipase 1437 H Thyroid Stimulating Hormone (TSH) 7.050 H Medications Medications Current Medications Ondansetron HCl (Zofran Inj) 4 mg Q6H PRN IV NAUSEA AND/OR VOMITING; Start at 02:30 Nitroglycerin (Nitroglycerin (Sl Tab) 0.4 Mg) 1 tab Q5M PRN SL CHEST PAIN; Start 07/01/17 at 02:30 Acetaminophen (Tylenol Tab) 650 mg Q6H PRN PO PAIN LEVEL 1-3 OR FEVER; Start 07/01/17 at 02:30 Morphine Sulfate (morphine) 2 mg Q4H PRN IV PAIN LEVEL 7-10; Start 07/01/17 at 02:30 Atorvastatin Calcium (Lipitor) 80 mg QHS PO Last administered on 07/02/17 21: 00; Admin Dose 80 MG; Start 07/01/17 at 21:00 Clopidogrel Bisulfate (plaVIX) 75 mg DAILY PO Last administered on 07/02/17 08:18; Admin Dose 75 MG; Start 07/01/17 at 09:00 Docusate Sodium (Colace) 200 mg DAILY PO Last administered on 07/02/17 08:17 ; Admin Dose 200 MG; Start 07/01/17 at 09:00 Psyllium Hydrophilic Mucilloid (Metamucil) 1 pkt DAILY PO Last administered on 07/02/17 10:13; Admin Dose 1 PKT; Start 07/01/17 at 09:00 Tamsulosin HCl (Flomax) 0.4 mg HS PO Last administered on 07/02/17 21:00; Admin Dose 0.4 MG; Start 07/01/17 at 21:00 Pantoprazole (Protonix Tab) 40 mg DAILY@06 PO Last administered on 07/03/17 06:01; Admin Dose 40 MG; Start 07/01/17 at 06:00 Diphenhydramine HCl (Benadryl) 25 mg Q6 PRN PO ITCHING Last administered on 21:41; Admin Dose 25 MG; Start 07/01/17 at 14:30 Carbidopa/Levodopa (Sinemet Cr (50/ 200)) 2 tab QID PO Last administered on 12:59; Admin Dose 2 TAB; Start 07/01/17 at 21:00 Metoprolol Tartrate (Lopressor) 100 mg BID PO Last administered on 07/02/17 21:02; Admin Dose 100 MG; Start 07/02/17 at 09:00 Aspirin (Halfprin) 81 mg DAILY PO Last administered on 07/02/17 16:58; Admin Dose 81 MG; Start 07/02/17 at 16:30 Senna/Docusate Sodium (Senokot-S) 2 tab HS PO Last administered on 07/02/17 21:00; Admin Dose 2 TAB; Start 07/02/17 at 21:00 ASHLEY MASTERSON MD Jul 03, 2017 13:58
--- NOTE | 2017-07-03 15:40 | PN ---
Date/Time of Note Date/Time of Note DATE: 07/03/17 TIME: 15:37 Assessment/Plan VTE Prophylaxis VTE Prophylaxis Intervention: LMWH Lines/Catheters IV Catheter Type (from Nrsg): Peripheral IV Assessment/Plan Chief Complaint/Hosp Course S: Admitted with diaphoresis and left leg and potentially harm weakness while at dialysis. Denies any loss of speech vision headache fever. Occasionally has trouble swallowing his pills. Had a similar event last week at an outside hospital [facility]; I do not believe he had an MRI. Recently admitted for heart disease at [facility]. Denies any new stents. Adherent to Plavix. Denies any incontinence tongue bite loss of vision. He has chronic parkinsonism is mostly on the left. Follows commands oriented at present. O: Vss PE No pallor droop JVD Regular no murmur rub gallop Clear bilat Bs+ nontender nausea no RrG; Obesity No Edema Neuro: CN II to XII grossly intact Motor: 5*5 on Rt. 4-5 * 5 lt. Sensory: Symmetrical Babinski's: None Cerebellar function tests: F-N essentially grossly intact; no dysdiadochokinesis. These tests are a little more easier on the right. A/P 1. Lt-sided paresthesias. TIA? no stroke. Consider arthritic disease or progressive parkinsonism. [facility] done, no symptoms of NPH at this time. 2. Chronic coronary disease. Sent RCA in-stent stenosis? cont Plavix/ risk factor modification 3. ESRD. Needs dialysis Friday [facility] 4. Chronic A. fib? chadsvas2 =1 6. Chronic BPH 7. Chronic parkinsonism; PT consult/dme 8. Chronic BPH 9. Chronic dyslipidemia 10.Chronic anemia 10. Constipation 11. Clinical hypothyroidism? Problems: Exam/Review of Systems Vital Signs Vitals Vital Signs Date Time Temp Pulse Resp B/P Pulse Ox O2 Delivery O2 Flow Rate FiO2 07/03/17 13:02 98.1 74 20 104/61 99 Room Air 07/01/17 14:30 2.0 Intake and Output 07/02/17 07/02/17 07/03/17 15:00 23:00 07:00 Intake Total 400 ml 1080 ml Output Total 650 ml Balance 400 ml 430 ml Results Result Diagram: 07/03/1730 07/03/17 0730 Results 24 hrs Laboratory Tests Test 07/03/17 07:30 White Blood Count 5.5 Red Blood Count 3.11 L Hemoglobin 10.3 L Hematocrit 30.7 L Mean Corpuscular Volume 98.7 Mean Corpuscular Hemoglobin 33.1 H Mean Corpuscular Hemoglobin Concent 33.6 Red Cell Distribution Width 13.6 Platelet Count 156 Mean Platelet Volume 9.9 Neutrophils % 78.3 H Lymphocytes % 6.0 L Monocytes % 10.6 Eosinophils % 4.5 Basophils % 0.4 Nucleated Red Blood Cells % 0.0 Neutrophils # 4.3 Lymphocytes # 0.3 L Monocytes # 0.6 Eosinophils # 0.3 Basophils # 0.0 Nucleated Red Blood Cells # 0.0 Sodium Level 139 Potassium Level 4.8 Chloride Level 94 L Carbon Dioxide Level 30 Anion Gap 20 H Blood Urea Nitrogen 64 H Creatinine 9.08 H Glucose Level 77 Calcium Level 10.3 H Phosphorus Level 5.3 H Magnesium Level 2.2 Total Bilirubin 0.3 Direct Bilirubin 0.00 Indirect Bilirubin 0.3 Aspartate Amino Transf (AST/SGOT) 24 Alanine Aminotransferase (ALT/SGPT) 19 Alkaline Phosphatase 80 Total Protein 6.4 Albumin 3.7 Globulin 2.70 Albumin/Globulin Ratio 1.37 Lipase 1437 H Thyroid Stimulating Hormone (TSH) 7.050 H Medications Medications Current Medications Ondansetron HCl (Zofran Inj) 4 mg Q6H PRN IV NAUSEA AND/OR VOMITING; Start at 02:30 Nitroglycerin (Nitroglycerin (Sl Tab) 0.4 Mg) 1 tab Q5M PRN SL CHEST PAIN; Start 07/01/17 at 02:30 Acetaminophen (Tylenol Tab) 650 mg Q6H PRN PO PAIN LEVEL 1-3 OR FEVER; Start 07/01/17 at 02:30 Morphine Sulfate (morphine) 2 mg Q4H PRN IV PAIN LEVEL 7-10; Start 07/01/17 at 02:30 Atorvastatin Calcium (Lipitor) 80 mg QHS PO Last administered on 07/02/17 21: 00; Admin Dose 80 MG; Start 07/01/17 at 21:00 Clopidogrel Bisulfate (plaVIX) 75 mg DAILY PO Last administered on 07/02/17 08:18; Admin Dose 75 MG; Start 07/01/17 at 09:00 Docusate Sodium (Colace) 200 mg DAILY PO Last administered on 07/02/17 08:17 ; Admin Dose 200 MG; Start 07/01/17 at 09:00 Psyllium Hydrophilic Mucilloid (Metamucil) 1 pkt DAILY PO Last administered on 07/02/17 10:13; Admin Dose 1 PKT; Start 07/01/17 at 09:00 Tamsulosin HCl (Flomax) 0.4 mg HS PO Last administered on 07/02/17 21:00; Admin Dose 0.4 MG; Start 07/01/17 at 21:00 Pantoprazole (Protonix Tab) 40 mg DAILY@06 PO Last administered on 07/03/17 06:01; Admin Dose 40 MG; Start 07/01/17 at 06:00 Diphenhydramine HCl (Benadryl) 25 mg Q6 PRN PO ITCHING Last administered on 21:41; Admin Dose 25 MG; Start 07/01/17 at 14:30 Carbidopa/Levodopa (Sinemet Cr (50/ 200)) 2 tab QID PO Last administered on 12:59; Admin Dose 2 TAB; Start 07/01/17 at 21:00 Metoprolol Tartrate (Lopressor) 100 mg BID PO Last administered on 07/02/17 21:02; Admin Dose 100 MG; Start 07/02/17 at 09:00 Aspirin (Halfprin) 81 mg DAILY PO Last administered on 07/02/17 16:58; Admin Dose 81 MG; Start 07/02/17 at 16:30 Senna/Docusate Sodium (Senokot-S) 2 tab HS PO Last administered on 07/02/17 21:00; Admin Dose 2 TAB; Start 07/02/17 at 21:00 DHRUV UMANA MD Jul 03, 2017 15:39
[2017-07-03] MEDS: DIPHENHYDRAMINE 25 MG CAP PO PRN (16:54)
[2017-07-03] MEDS: SENNA/DOCUSATE NA (8.6MG/50MG) TAB PO SCH (21:00)
[2017-07-03] MEDS: TAMSULOSIN (SR) 0.4 MG CAP PO SCH (21:38)
[2017-07-03] MEDS: ATORVASTATIN 80 MG TAB PO SCH (21:38)
[2017-07-04] VITALS (11 sets, daily range): BP systolic 91–113; BP diastolic 40–67; PULSE 64–85; RESP 20
[2017-07-04] MEDS: LEVOTHYROXINE 50 MCG TAB PO SCH (06:16)
[2017-07-04] MEDS: PANTOPRAZOLE (EC) 40 MG TAB PO SCH (06:16)
[2017-07-04] MEDS: DIPHENHYDRAMINE 25 MG CAP PO PRN (06:16)
[2017-07-04] MEDS: SEVELAMER CARBONATE 0.8 GM PKT PO SCH (08:11)
[2017-07-04] MEDS: ASPIRIN (EC) 81 MG TAB PO SCH (08:11)
[2017-07-04] MEDS: DOCUSATE SODIUM 100 MG CAP PO SCH (08:11)
[2017-07-04] MEDS: CARBIDOPA/LEVODOPA 50-200 (CR) TAB PO SCH (08:12)
[2017-07-04] MEDS: CLOPIDOGREL 75 MG TAB PO SCH (08:12)
[2017-07-04] MEDS: METOPROLOL 100 MG TAB PO SCH (08:13)
[2017-07-04] MEDS: PSYLLIUM 28% PACKET PO SCH (08:14)
[2017-07-04 08:57] LABS: ABNORMAL IP MESSAGE 1; BASOPHILS % 0.4 % (0.0-2.0); EOSINOPHILS # 0.2 10^3/ul (0.0-0.5); EOSINOPHILS % 4.1 % (0.0-7.0); HEMATOCRIT 29.8 % (42.0-52.0); HEMOGLOBIN 9.8 g/dl (14.0-18.0); LYMPHOCYTES # 0.3 10^3/ul (0.8-2.9); LYMPHOCYTES % 6.1 % (15.0-51.0); MEAN CORPUSCULAR HEMOGLOBIN 33.2 pg (29.0-33.0); MEAN CORPUSCULAR HGB CONC 32.9 g/dl (32.0-37.0); MEAN PLATELET VOLUME 10.2 fl (7.4-10.4); MONOCYTE # 0.6 10^3/ul (0.3-0.9); MONOCYTES % 12.8 % (0.0-11.0); NEUTROPHIL # 3.8 10^3/ul (1.6-7.5); NEUTROPHILS % 76.2 % (39.0-77.0); PLATELET COUNT 146 10^3/UL (140-415); POSITIVE DIFF @See below; RED BLOOD COUNT 2.95 10^6/ul (4.70-6.10); RED CELL DISTRIBUTION WIDTH 13.7 % (11.5-14.5); WHITE BLOOD COUNT 4.9 10^3/ul (4.8-10.8)
[2017-07-04 09:15] LABS: ALBUMIN 3.4 g/dl (3.3-4.9); ALBUMIN/GLOBULIN RATIO 1.36; BILIRUBIN,INDIRECT 0.2 mg/dl (0-1.1); BILIRUBIN,TOTAL 0.2 mg/dl (0.2-1.3); CALCIUM 9.6 mg/dl (8.4-10.2); CREATININE 7.61 mg/dl (0.61-1.24); PHOSPHORUS 6.3 mg/dl (2.5-4.9); POTASSIUM 4.6 mmol/L (3.5-5.1); TOTAL PROTEIN 5.9 g/dl (6.1-8.1)
--- NOTE | 2017-07-04 11:25 | DS ---
Date/Time of Note Date/Time of Note DATE: 07/04/17 TIME: 11:22 Discharge Summary Admission/Discharge Info Admit Date/Time Jul 01, 2017 at 16:08 Discharge Date/Time Discharge Diagnosis TIA? Patient Condition: Stable Procedures CT MRI brain. Dialysis. Hx of Present Illness 71-year-old gentleman admitted with left-sided symptoms concerning for stroke. Hospital Course S: Admitted with diaphoresis and left leg and potentially harm weakness while at dialysis. Denies any loss of speech vision headache fever. Occasionally has trouble swallowing his pills. Had a similar event last week at an outside hospital [facility]; I do not believe he had an MRI. Recently admitted for heart disease at [facility]. Denies any new stents. Adherent to Plavix. Denies any incontinence tongue bite loss of vision. He has chronic parkinsonism is mostly on the left. Follows commands oriented at present. -- CT and MRI negative for acute process. This may be cervical disc disease. Will treat conservatively at this time. Refer to neurology as outpatient. [facility] Continue risk factor modification for stroke. Needs advanced care planning reevaluated. MRI imaging was concerning for NPH. I do not see any incontinence headache or gait dysfunction concerning for NPH at this time. He will have close follow-up with primary/neurology Case management has placed referral. O: Vss PE No pallor droop JVD Regular no murmur rub gallop Clear bilat Bs+ nontender nausea no RrG; Obesity No Edema Neuro: CN II to XII grossly intact Motor: 5*5 on Rt. 4-5 * 5 lt. Sensory: Symmetrical Babinski's: None Cerebellar function tests: F-N essentially grossly intact; no dysdiadochokinesis. These tests are a little more easier on the right. A/P 1. Lt-sided paresthesias. TIA? no stroke. Consider cervical disc disease or progressive parkinsonism. -Outpatient neurology with [place]. MRI done, no symptoms of NPH at this time. 2. Chronic coronary disease. Sent RCA in-stent stenosis? cont Plavix/ risk factor modification 3. ESRD. Needs [facility] 4. Chronic A. fib? chadsvas2 =1 6. Chronic BPH 7. Chronic parkinsonism; PT consulted/dme 8. Chronic BPH 9. Chronic dyslipidemia 10.Chronic anemia 10. Constipation 11. Clinical hypothyroidism? Home Meds Reported Medications Carbidopa-Levodopa* (Sinemet CR*) 50-200 Mg Tabsr, 2 TAB PO QID, TAB 07/01/17 Clopidogrel Bisulfate* (Clopidogrel Bisulfate*) 75 Mg Tablet, 75 MG PO DAILY, # 30 TAB 06/30/17 Atorvastatin* (Atorvastatin*) 80 Mg Tablet, 80 MG PO QHS, #30 TAB 06/30/17 Psyllium* (Metamucil*) 1 Pkt Susp, 1 PKT PO DAILY for CONSTIPATION, PACKET 09/30/14 Levothyroxine Sodium* (Levothyroxine Sodium*) 50 Mcg Tablet, 50 MCG PO DAILY, TAB 09/30/14 Docusate Sodium* (Docusate Sodium*) 100 Mg Capsule, 200 MG PO DAILY, CAP 09/30/14 Sevelamer Carbonate* (Renvela*) 800 Mg Tablet, 800 MG PO TID, TAB 09/30/14 Omeprazole* (Omeprazole*) 20 Mg Capsule.dr, 20 MG PO DAILY, CAP 09/30/14 Metoprolol (Lopressor) 100 Mg Tablet, 200 MG PO BID 08/17/12 Tamsulosin Hcl* (Flomax*) 0.4 Mg Cap.sr.24h, 0.4 MG PO HS 08/17/12 Folic Acid/Vitamin B Comp W-C (Dialyvite Tablet) 1 Tab Tablet, 1 TAB PO DAILY 08/17/12 Discontinued Reported Medications Simvastatin (Simvastatin) 40 Mg Tablet, 20 MG PO HS, TAB 09/30/14 Cinacalcet* (Sensipar*) 30 Mg Tab, 30 MG PO DAILY, TAB 09/30/14 Carbidopa/Levodopa (Carbidopa-Levo 25-100 Tab) 1 Tab Tablet, 1 TAB PO TID 08/17/12 Primary Care Provider Not On Staff Doctor Time spent on discharge: > 30 minutes Pending Labs Laboratory Tests Test 07/04/17 06:48 White Blood Count 4.910^3/ul (4.8-10.8) Red Blood Count 2.9510^6/ul (4.70-6.10) Hemoglobin 9.8g/dl (14.0-18.0) Hematocrit 29.8% (42.0-52.0) Mean Corpuscular Volume 101.0fl (82.0-101.0) Mean Corpuscular Hemoglobin 33.2pg (29.0-33.0) Mean Corpuscular Hemoglobin Concent 32.9g/dl (32.0-37.0) Red Cell Distribution Width 13.7% (11.5-14.5) Platelet Count 75533^3/UL (140-415) Mean Platelet Volume 10.2fl (7.4-10.4) Neutrophils % 76.2% (39.0-77.0) Lymphocytes % 6.1% (15.0-51.0) Monocytes % 12.8% (0.0-11.0) Eosinophils % 4.1% (0.0-7.0) Basophils % 0.4% (0.0-2.0) Nucleated Red Blood Cells % 0.0/100WBC (0.0-0.0) Neutrophils # 3.810^3/ul (1.6-7.5) Lymphocytes # 0.310^3/ul (0.8-2.9) Monocytes # 0.610^3/ul (0.3-0.9) Eosinophils # 0.210^3/ul (0.0-0.5) Basophils # 0.010^3/ul (0.0-0.1) Nucleated Red Blood Cells # 0.010^3/ul (0.0-0.0) Sodium Level 141mmol/L (135-144) Potassium Level 4.6mmol/L (3.5-5.1) Chloride Level 99mmol/L (97-110) Carbon Dioxide Level 30mmol/L (21-31) Anion Gap 17 (8-16) Blood Urea Nitrogen 50mg/dl (7-20) Creatinine 7.61mg/dl (0.61-1.24) Glucose Level 78mg/dl (70-220) Calcium Level 9.6mg/dl (8.4-10.2) Phosphorus Level 6.3mg/dl (2.5-4.9) Total Bilirubin 0.2mg/dl (0.2-1.3) Direct Bilirubin 0.00mg/dl (0.00-0.20) Indirect Bilirubin 0.2mg/dl (0-1.1) Aspartate Amino Transf (AST/SGOT) 24IU/L (15-46) Alanine Aminotransferase (ALT/SGPT) 25IU/L (13-69) Alkaline Phosphatase 84IU/L (42-121) Total Protein 5.9g/dl (6.1-8.1) Albumin 3.4g/dl (3.3-4.9) Globulin 2.50g/dl (1.3-3.2) Albumin/Globulin Ratio 1.36 Free Thyroxine 0.95ng/dl (0.78-2.44) Total Triiodothyronine 0.83ng/ml (0.97-1.69) DHRUV UMANA MD Jul 04, 2017 11:25
--- NOTE | 2017-07-04 11:26 | PDOCDIS ---
Discharge Instructions DIAGNOSIS Discharge Diagnosis TIA? CONDITION Patient Condition: Stable HOME CARE INSTRUCTIONS: Special Diet: cardiac/renal FOLLOW UP/APPOINTMENTS [facility]. Regular [facility]ology 1 week. Continue dialysis Friday. DHRUV UMANA MD Jul 04, 2017 11:26
[2017-07-04] MEDS ORDERED: ASPI-664 PO (11:27)
[2017-07-04] MEDS ORDERED: PANT40TA4 PO (11:27)
[2017-07-04] MEDS ORDERED: SENN-88 PO (11:27)
--- NOTE | 2017-07-04 13:33 | CONS ---
Date/Time of Note Date/Time of Note DATE: 07/04/17 TIME: 13:30 Assessment/Plan Assessment/Plan Additional Assessment/Plan 1. End-stage renal disease due to hypertension. HD done today and next will be on Friday as an outpatient. 2. Hypertension: on meds and stable 3. Hyperlipidemia: on statin He is being discharged today per PCP Consultation Date/Type/Reason Admit Date/Time Jul 01, 2017 at 16:08 Initial Consult Date Type of Consultation: Nephrology 24 HR Interval Summary Free Text/Dictation Alert, s/p HD today. Denies CP or SOB Exam/Review of Systems Vital Signs Vitals Vital Signs Date Time Temp Pulse Resp B/P Pulse Ox O2 Delivery O2 Flow Rate FiO2 07/04/17 12:07 64 07/04/17 09:20 18 07/04/17 08:00 98.2 110/59 96 07/03/17 16:56 Room Air 07/01/17 14:30 2.0 Intake and Output 07/03/17 07/03/17 07/04/17 14:59 22:59 06:59 Intake Total 700 ml 1735 ml 800 ml Output Total 2700 ml 1500 ml Balance -2000 ml 235 ml 800 ml Exam Constitutional: alert Neck: No jvd Respiratory: clear to auscultation Cardiovascular: regular rate and rhythm Gastrointestinal: soft Extremities: No edema Results Result Diagram: 07/04/17 0648 07/04/17 0648 Results 24 hrs Laboratory Tests Test 07/04/17 06:48 White Blood Count 4.9 Red Blood Count 2.95 L Hemoglobin 9.8 L Hematocrit 29.8 L Mean Corpuscular Volume 101.0 Mean Corpuscular Hemoglobin 33.2 H Mean Corpuscular Hemoglobin Concent 32.9 Red Cell Distribution Width 13.7 Platelet Count 146 Mean Platelet Volume 10.2 Neutrophils % 76.2 Lymphocytes % 6.1 L Monocytes % 12.8 H Eosinophils % 4.1 Basophils % 0.4 Nucleated Red Blood Cells % 0.0 Neutrophils # 3.8 Lymphocytes # 0.3 L Monocytes # 0.6 Eosinophils # 0.2 Basophils # 0.0 Nucleated Red Blood Cells # 0.0 Sodium Level 141 Potassium Level 4.6 Chloride Level 99 Carbon Dioxide Level 30 Anion Gap 17 H Blood Urea Nitrogen 50 H Creatinine 7.61 H Glucose Level 78 Calcium Level 9.6 Phosphorus Level 6.3 H Total Bilirubin 0.2 Direct Bilirubin 0.00 Indirect Bilirubin 0.2 Aspartate Amino Transf (AST/SGOT) 24 Alanine Aminotransferase (ALT/SGPT) 25 Alkaline Phosphatase 84 Total Protein 5.9 L Albumin 3.4 Globulin 2.50 Albumin/Globulin Ratio 1.36 Free Thyroxine 0.95 Total Triiodothyronine 0.83 L Medications Medications Current Medications Ondansetron HCl (Zofran Inj) 4 mg Q6H PRN IV NAUSEA AND/OR VOMITING; Start at 02:30 Nitroglycerin (Nitroglycerin (Sl Tab) 0.4 Mg) 1 tab Q5M PRN SL CHEST PAIN; Start 07/01/17 at 02:30 Acetaminophen (Tylenol Tab) 650 mg Q6H PRN PO PAIN LEVEL 1-3 OR FEVER; Start 07/01/17 at 02:30 Morphine Sulfate (morphine) 2 mg Q4H PRN IV PAIN LEVEL 7-10; Start 07/01/17 at 02:30 Atorvastatin Calcium (Lipitor) 80 mg QHS PO Last administered on 07/03/17 21: 38; Admin Dose 80 MG; Start 07/01/17 at 21:00 Clopidogrel Bisulfate (plaVIX) 75 mg DAILY PO Last administered on 07/04/17 08:12; Admin Dose 75 MG; Start 07/01/17 at 09:00 Docusate Sodium (Colace) 200 mg DAILY PO Last administered on 07/04/17 08:11 ; Admin Dose 200 MG; Start 07/01/17 at 09:00 Psyllium Hydrophilic Mucilloid (Metamucil) 1 pkt DAILY PO Last administered on 07/02/17 10:13; Admin Dose 1 PKT; Start 07/01/17 at 09:00 Tamsulosin HCl (Flomax) 0.4 mg HS PO Last administered on 07/03/17 21:38; Admin Dose 0.4 MG; Start 07/01/17 at 21:00 Pantoprazole (Protonix Tab) 40 mg DAILY@06 PO Last administered on 07/04/17 06:16; Admin Dose 40 MG; Start 07/01/17 at 06:00 Diphenhydramine HCl (Benadryl) 25 mg Q6 PRN PO ITCHING Last administered on 06:16; Admin Dose 25 MG; Start 07/01/17 at 14:30 Carbidopa/Levodopa (Sinemet Cr (50/ 200)) 2 tab QID PO Last administered on 08:12; Admin Dose 2 TAB; Start 07/01/17 at 21:00 Metoprolol Tartrate (Lopressor) 100 mg BID PO Last administered on 07/03/17 21:38; Admin Dose 100 MG; Start 07/02/17 at 09:00 Aspirin (Halfprin) 81 mg DAILY PO Last administered on 07/04/17 08:11; Admin Dose 81 MG; Start 07/02/17 at 16:30 Senna/Docusate Sodium (Senokot-S) 2 tab HS PO Last administered on 07/02/17 21:00; Admin Dose 2 TAB; Start 07/02/17 at 21:00 BREA ALANIZ MD Jul 04, 2017 13:33
== END 2017-07-04 15:56 | disposition home health service (06) | DRG 69 ==
LOC: E/R 19:07 → TEL 07-01 16:08
PROVIDERS: ADMIT Internal Medicine; ATTEND Internal Medicine
DX: G45.9 Transient cerebral ischemic attack, unspecified (principal); I21.3 ST elevation (STEMI) myocardial infarction of unspecified site; K85.90 Acute pancreatitis without necrosis or infection, unspecified; N18.6 End stage renal disease; I12.0 Hypertensive chronic kidney disease with stage 5 chronic kidney disease or end stage renal disease; G20 Parkinson's disease; I24.9 Acute ischemic heart disease, unspecified; I48.2 Chronic atrial fibrillation; I25.10 Atherosclerotic heart disease of native coronary artery without angina pectoris; N40.0 Benign prostatic hyperplasia without lower urinary tract symptoms; R20.0 Anesthesia of skin; R61 Generalized hyperhidrosis; R53.1 Weakness; R20.2 Paresthesia of skin; E78.5 Hyperlipidemia, unspecified; D50.0 Iron deficiency anemia secondary to blood loss (chronic); D63.1 Anemia in chronic kidney disease; Z88.0 Allergy status to penicillin; Z99.2 Dependence on renal dialysis; Z95.5 Presence of coronary angioplasty implant and graft
CPT/HCPCS: 36415; 70450; 70551; 71010; 80048; 80053; 80061; 82550; 82553; 83036; 83605; 83690; 83735; 84100; 84439; 84443; 84480; 84484; 85025; 85610; 85730; 90935; 93005; 93306; 93880; 96374; 96375; 97162; J1644; J2060